=== PATIENT | female | born 1940 | race Caucasian/White ===

== ENCOUNTER 2020-10-30 13:26 | Outpatient (CLI) | payer MEDICARE, SELFPAY ==
--- NOTE | ~2020-10-30 | US_ITS ---
EXAMINATION: US arterial duplex LE DATE: 10/30/2020 14:45 INDICATION: Peripheral vascular disease. TECHNIQUE: Multiple grayscale and Doppler ultrasound images of the arteries of the bilateral lower li mbs were obtained. COMPARISON: None FINDINGS: Triphasic waveforms at the right dorsalis pedis popliteal arteries and biphasic waveforms in the nicole ining arteries of the right lower limb including the right common femoral, profunda femoral, superfic ial femoral, peroneal and posterior tibial arteries, all with brisk systolic upstrokes without eviden t hemodynamically significant stenosis on grayscale imaging. Biphasic waveforms throughout the corres ponding arteries at the left lower limb also with brisk systolic upstrokes throughout and without amarilys dent hemodynamically significant stenosis on grayscale imaging. IMPRESSION: 1. No findings to suggest hemodynamically significant stenosis in the arteries of either lower limb. Reviewed, dictated and finalized at location A.
== END 2020-10-30 13:27 | disposition home or self-care (01) ==
PROVIDERS: PCP Internal Medicine; Visit Provider Internal Medicine
DX: I73.9 Peripheral vascular disease, unspecified (principal)
CPT/HCPCS: 93925

== ENCOUNTER 2022-06-23 08:28 | Outpatient (CLI) | payer MEDICARE, SELFPAY ==
--- NOTE | ~2022-06-23 | CT_ITS ---
EXAMINATION: CT diagnostic chest wo con DATE: 06/23/2022 08:55 INDICATION: Dyspnea on exertion TECHNIQUE: Computed tomography (CT) of the chest was performed without intravenous contrast. The dose -length product (DLP) was 150.60 mGy-cm. Automated exposure control and iterative reconstruction tech nique were employed. COMPARISON: None FINDINGS: There is scarring of the lung apices. There is a 1.5 cm groundglass nodule of the right upp er lobe on image 40. No pleural effusion or pneumothorax. There is calcified atherosclerosis of the a rodrcik and coronary arteries. No pathologically enlarged thoracic lymph nodes are identified. The heart size is normal. There is a small sliding hiatal hernia. Stones are present in the gallbladder. There is mild thoracic spondylosis. IMPRESSION: 1. 1.5 cm subsolid nodule of the right upper lobe which may be infectious or inflammatory. Follow-up low-dose CT in three months is recommended. Reviewed, dictated and finalized at location L. IMPRESSION: 1. 1.5 cm subsolid nodule of the right upper lobe which may be infectious or in flammatory. Follow-up low-dose CT in three months is recommended.
== END 2022-06-23 08:29 | disposition home or self-care (01) ==
PROVIDERS: PCP Internal Medicine; Visit Provider Nurse Practitioner Adult Health
DX: R06.09 Other forms of dyspnea (principal); R91.1 Solitary pulmonary nodule
CPT/HCPCS: 71250

== ENCOUNTER 2022-07-05 12:37 | Outpatient (CLI) | payer MEDICARE, SELFPAY ==
--- NOTE | 2022-07-06 13:42 | WPDPFTINT ---
PFT Procedure Performed PFT Procedure Performed Plethysmography (Lung Vol) Diffusing Cap (DLCO) Flow Vol Loop Spirometry w/o Bronchodil PFT Interpretation Lung volumes were measured with the body plethysmography method. The elevated FRC could be due to air trapping. Spirometry showed normal forced vital capacity and FEV1 but diminished mid expiratory flow rates at 51%predicted, which in conjunction with a borderline normal FEV 1 to FVC ratio of 64% could be due to small airway dysfunction. No post bronchodilator study was carried out. Lung diffusion capacity is mildly reduced at 66% predicted. The flow volume loop is consistent with small airway dysfunction. Impression: Probable small airway disease. Mild reduction in lung diffusion capacity.
== END 2022-07-05 12:38 | disposition home or self-care (01) ==
PROVIDERS: PCP Internal Medicine; Visit Provider Nurse Practitioner Adult Health
DX: R06.09 Other forms of dyspnea (principal); R53.83 Other fatigue; R94.2 Abnormal results of pulmonary function studies
CPT/HCPCS: 94375; 94726; 94729

== ENCOUNTER 2023-05-23 09:26 | Outpatient (CLI) | payer MEDICARE, SELFPAY ==
--- NOTE | ~2023-05-23 | CT_ITS ---
EXAMINATION: CT diagnostic chest wo con DATE: 05/23/2023 10:03 INDICATION: Lung nodule, tobacco use TECHNIQUE: Computed tomography (CT) of the chest was performed without intravenous contrast. The dose -length product (DLP) was 65.06 mGy-cm. Automated exposure control and iterative reconstruction techn ique were employed. COMPARISON: 06/23/2022 FINDINGS: There is scarring of the lung apices. A 1.2 cm subsolid nodule of the right upper lobe is s table to slightly decreased in size. No solid component is identified. The lungs are free of acute op acities. No pleural effusion or pneumothorax. There is a 7 mm nodule of the left lower lobe on image 62. There are is a 9 mm subsolid nodule of the right lower lobe on image 65. No pathologically enlarg ed thoracic lymph nodes are identified. The heart size is normal. There is calcified coronary artery atherosclerosis. Cholelithiasis is noted. There is mild thoracic spondylosis. There are partially maria g ged changes of anterior fusion in the lower cervical spine. IMPRESSION: 1. Indeterminate 7 mm nodule of the left lower lobe. CT-guided biopsy is recommended. 2. Continued follow-up is recommended for the subsolid nodules of the right lung. Reviewed, dictated and finalized at location L. UTERIZED TABLE CUTTER IMPRESSION: 1. Indeterminate 7 mm nodule of the left lower lobe. CT-guided biopsy is recomm ended. 2. Continued follow-up is recommended for the subsolid nodules of the right luisa g.
== END 2023-05-23 09:27 | disposition home or self-care (01) ==
PROVIDERS: PCP Internal Medicine; Visit Provider Internal Medicine Cardiovascular Disease
DX: R91.1 Solitary pulmonary nodule (principal)
CPT/HCPCS: 71250

== ENCOUNTER 2023-11-22 09:33 | Emergency (ER) | payer MEDICARE, SELFPAY ==
--- NOTE | ~2023-11-22 | CT_ITS ---
EXAMINATION: CT LE RT wo con DATE: 11/22/2023 10:52 INDICATION: Spontaneous bleed with right lower limb pain and swelling TECHNIQUE: High resolution computed tomography (CT) of the right lower limb was performed without int ravenous contrast. Additional sagittal and coronal reconstructions were performed. Automated exposure control and iterative reconstruction technique were employed. The dose-length product was 2107.27 mG y-cm. COMPARISON: None FINDINGS: Surgical clips posterior to the cecum likely related to prior appendectomy. Mild diverticulosis along the sigmoid colon without adjacent from trace stranding to suggest diverticulitis. Bladder is normal . The uterus is not identified and has likely been surgically resected. Partially visualized moder ate-sized fat-containing left inguinal hernia. No free fluid in the pelvis. No pathologically enlarge d right pelvic or inguinal lymphadenopathy. Bone alignment is normal. No fracture. Moderate osteoarthritis at the right hip with posterior predom inant nonuniform joint space narrowing and subarticular cystlike changes at the posterior superior as pect of the femoral head and along the superolateral rim of the right acetabulum. No hip joint effusi on. Additional subarticular cystlike changes at the lateral patellar facet consistent with overlying high-grade chondromalacia. Small right knee joint effusion at the suprapatellar pouch. The medial lat eral compartments of the knee appear normal however joint space narrowing can be underestimated on no nweightbearing imaging. Minimal to mild polyarticular osteoarthritis at a few of the joints in the bi lateral mid and forefeet. Asymmetric soft tissue swelling with subcutaneous edema about the right ank le and over the dorsum of the right foot foot which is not seen at the contralateral left foot and an kle. Musculature in the right lower limb appears unremarkable. Atherosclerotic calcifications scatter ed in the arteries of the pelvis. Minimal scattered atherosclerotic calcification at the right common femoral, proximal femoral, popliteal and anterior and posterior tibial arteries. IMPRESSION: 1. Polyarticular osteoarthritis, moderate at the right hip and mild at the right knee and a few joint s in the right mid and forefoot. No acute osseous adenopathy. 2. Small right knee joint effusion. 3. Ossific asymmetric soft tissue swelling with subcutaneous edema at the right foot and ankle which is of indeterminate etiology. 4. Incompletely visualized moderate-sized fat-containing left inguinal hernia. Reviewed, dictated and finalized at location A. IMPRESSION: 1. 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 No acute osseous adenopa thy. 2. Small right knee joint effusion. 3. Ossific asymmetric soft tissue swelling with subcutaneous edema at the right foot and ankle which is of indeterminate etiology. 4. Incompletely visualized moderate-sized fat-containing left inguinal hernia.
--- NOTE | ~2023-11-22 | US_ITS ---
Duplex Sonography of the right extremity: Indication: Pain and swelling Findings: Sagittal and transverse B-mode images as well as color-flow imaging were performed on the r ight femoral and popliteal veins. B-mode examination was done without and with compression in the tr ansverse plane. There is good visualization of the common femoral, proximal profunda femoral, superf icial femoral, greater saphenous, and popliteal veins. Normal flow was seen on color-flow imaging. N ormal compressibility was demonstrated. Visualized calf veins are also patent. Impression: No evidence of deep vein thrombosis involving the right lower extremity. Reviewed, dictated and finalized at location M. Impression: No evidence of deep vein thrombosis involving the right lower extremity.
[2023-11-22 09:39] VITALS: BP 153/69; PULSE 86; RESP 16; TEMP 36.6; O2SAT 99
[2023-11-22 10:00] VITALS: BP 128/57; PULSE 72; RESP 18; TEMP 36.6; O2SAT 97
--- NOTE | 2023-11-22 10:07 | ED.EXTPRO ---
HPI - Extremity Problem General Chief complaint: Extremity Problem,Nontraumatic Stated complaint: right leg pain, swelling Time Seen by Provider: 11/22/23 09:36 History of Present Illness HPI Narrative: 83-year-old female with a history of hyperlipidemia, CAD, atrial fibrillation on warfarin, COPD, hypertension presents to the emergency department for right lower extremity ecchymosis, pain and swelling for 1 week. Patient denies injury or trauma to this leg. She does state that she had a mechanical fall this morning and she landed on her right hip. She denies hitting her head or other injuries. She states she has been taking her warfarin as directed normally gets her INR checked every month. She states she had blood work checked by her PCP yesterday but is unsure of the results. She was contacted by her PCPs office and was advised to come to the ED for further evaluation today. She is endorsing numbness and tingling to the right leg as well as pain throughout. Related Data Home Medications Medication Instructions Recorded Confirmed diphenhydramine HCl 25 mg tablet 25 mg PO ONCE PRN 03/29/19 11/21/23 (Allergy Relief (diphenhydramine)) metoprolol tartrate 50 mg tablet 50 mg PO Q12H 03/29/19 11/21/23 multivitamin (Multiple Vitamins 1 tablet PO DAILY 03/29/19 11/21/23 tablet) nitroglycerin 0.4 mg sublingual 0.4 mg sublingual Q5M PRN 03/29/19 11/21/23 tablet simvastatin 20 mg tablet 20 mg PO DAILY 03/29/19 11/21/23 warfarin 3 mg tablet 3 mg PO DAILY 03/29/19 11/21/23 aspirin 81 mg tablet,delayed 81 mg PO DAILY 04/01/19 11/21/23 release (Adult Low Dose Aspirin) cholecalciferol (vitamin D3) 50 2,000 unit PO DAILY 04/01/19 11/21/23 mcg (2,000 unit) capsule vitamin E (dl, acetate) 180 mg 400 unit PO DAILY 04/01/19 11/21/23 (400 unit) capsule amlodipine 2.5 mg tablet 2.5 mg PO DAILY 10/07/19 11/21/23 calcium carbonate (Tums) 200 mg PO BID PRN 10/07/19 11/21/23 Allergies Allergy/AdvReac Type Severity Reaction Status Date / Time adhesive tape Allergy Severe BLISTERS Verified 11/21/23 11:24 cortisone Allergy Severe Swelling Verified 11/21/23 11:24 iodine Allergy Severe Swelling, Verified 11/21/23 11:24 rash povidone Allergy Severe Rash Verified 11/21/23 11:24 Sulfa (Sulfonamide Allergy Intermediate Rash Verified 11/21/23 11:24 Antibiotics) lisinopril Allergy Unknown RASH, Verified 11/21/23 11:24 SORES IN MOUTH STAINLESS STEEL Allergy Intermediate INFECTION Uncoded 11/21/23 11:24 FROM SURGICAL PIN Review of Systems Review of Systems: All systems reviewed & are unremarkable except as noted in HPI and below PMFSH Family History Family History Mother Patient's mother is Father Patient's father is Other Heart disease Social History Social History Smoking status: Former smoker Tobacco type: cigarettes Second hand tobacco smoke exposure: No Smoking end date: 03/20/12 Alcohol intake: current Alcohol use details: rarely Substance use: never Lack of Transportation: No Lack of Food: Never True Current Housing: I Have Housing Concerned About Future Housing: No Difficulty Paying Gas/Electric Bills: No Difficulty Paying for Meds: No Currently Unemployed: No Education: High School Diploma/GED Difficulty w/ Childcare or Family Care: No Exam Narrative: GENERAL: Well-appearing, well-nourished, and in no acute distress. HEAD: Normocephalic, atraumatic. EYES: PERRLA and EOMI. ENT: Nares clear, no rhinorrhea or epistaxis. Mucous membranes moist. NECK: Supple. No midline cervical spinous tenderness, step-offs or deformity BACK: no midline thoracolumbar spinous tenderness, step-offs or deformities CHEST: Clear to auscultation. No respiratory distress. HEART: Regular rate and rhythm.
[2023-11-22 11:17] LABS: Basophils Absolute Auto 0.1 K/mm3 (0.0-0.1); Basophils Percent Auto 0.8 % (0.2-1.2); Eosinophils Absolute Auto 0.2 K/mm3 (0-0.3); Eosinophils Percent Auto 2.7 % (0-4.4); Hematocrit 31.7 % (37.0-47.0); Hemoglobin 10.3 g/dL (12.0-15.0); Immature Granulocyte Absolute 0.03 K/mm3 (0.00-0.031); Immature Granulocyte Percent A 0.4 % (0-0.5); Lymphocytes Absolute Auto 1.78 K/mm3 (0.9-3.2); Lymphocytes Percent Auto 22.7 % (18.3-44.2); Mean Corpuscular HGB Conc 32.5 g/dl (32-36); Mean Corpuscular Hemoglobin 33.4 pg (26-34); Mean Corpuscular Volume 102.9 fl (80-100); Mean Platelet Volume 9.1 fl (7.4-10.4); Monocytes Percent Auto 12.6 % (2.6-8.5); Neutrophils Absolute Auto 4.8 K/mm3 (1.3-6.7); Neutrophils Percent Auto 60.8 % (45.5-73.1); Platelet Count Result 300 k/mm3 (150-375); Red Blood Count 3.08 M/mm3 (4.2-5.4); Red Cell Distribution Width 12.4 % (11.5-14.5); White Blood Count 7.8 K/mm3 (4.5-10.0)
[2023-11-22 11:28] LABS: INR 3.3
[2023-11-22 11:29] LABS: Partial Thromboplastin Time 79.4 Seconds (22.3-36.8)
[2023-11-22 11:33] LABS: Alanine Aminotransferase 23 U/L (6-35); Albumin Level 3.7 g/dL (3.5-5.1); Alkaline Phosphatase 64 U/L (38-126); Anion Gap 7 mmol/L (4-12); Aspartate Amino Transferase 24 U/L (14-36); Bilirubin,Total 0.4 mg/dL (0.2-1.3); Blood Urea Nitrogen 10 mg/dL (7-17); Calcium 8.8 mg/dL (8.4-10.2); Carbon Dioxide 31 mmol/L (22-30); Chloride 101 mmol/L (98-107); Estimated CRCL calculation 57 ml/min; Estimated Glomerular Filt Rate > 60; Glucose 117 mg/dL (65-110); Potassium 4.2 mmol/L (3.4-5.0); Sodium 139 mmol/L (137-145)
[2023-11-22 12:26] VITALS: PULSE 77; RESP 17; O2SAT 98
== END 2023-11-22 12:29 | disposition left against medical advice (07) ==
PROVIDERS: Emergency Provider Physician Assistant; PCP Internal Medicine
DX: R23.3 Spontaneous ecchymoses (principal); R60.9 Edema, unspecified; Z79.01 Long term (current) use of anticoagulants; Z79.82 Long term (current) use of aspirin; Z87.891 Personal history of nicotine dependence
CPT/HCPCS: 36415; 73700; 80053; 85025; 85610; 85730; 93971; 99284

== ENCOUNTER 2023-12-06 09:09 | Outpatient (CLI) | payer MEDICARE, SELFPAY ==
--- NOTE | ~2023-12-06 | MR_ITS ---
EXAMINATION: MR lower leg RT wo con DATE: 12/06/2023 09:56 INDICATION: Generalized right lower limb pain, swelling and bruising TECHNIQUE: Magnetic resonance imaging (MRI) of the right lower leg was performed without intravenous contrast. A marker was placed over the mass. Sequences included axial, sagittal and coronal T1-weigh braulio FSE and fluid sensitive FSE STIR. The contralateral left lower leg is included on the coronal maria g ges. COMPARISON: CT dated 11/22/2023 FINDINGS: Bone alignment is normal. Low signal intensity likely sclerotic bone island at the left talus. Otherw ise normal bone marrow signal throughout with no fracture, reactive edema or pathologic marrow replac ing process. There is soft tissue edema at the posterior medial aspect of the right knee which appear s to extend caudally from the region of a small Khan's cyst potentially related to represents extrav asation from the Khan's cyst. There is additional subcutaneous edema throughout the right lower leg most prominent along the medial margin of the distal tibia surrounding the distal right greater saphe nous vein. Axial images there is loss of the low signal intensity flow void within vein at this level which could be due to sluggish flow, thrombosis or thrombophlebitis. There appears to be likely slug sandra flow in the asymmetric mildly dilated veins in the muscles of the posterior compartment of the l ower leg with layering fluid hematocrit levels. On the axial images there appears to be extrinsic com pression of the right popliteal vein at the popliteal fossa bilaterally proximal gastrocnemius muscle . Evaluation is however limited by loss of signal at this level which is at the margin of the field o f imaging. Musculature of the bilateral lower legs appears normal and symmetric. No knee or ankle rusty nt effusions. IMPRESSION: 1. Mild edema at the medial aspect of the right popliteal fossa the vicinity of a small Khan's cyst which could represent cyst rupture with extravasation. 2. Asymmetric mild enlargement of the intramuscular veins in the posterior compartment of the right c angel relative to the left with layering fluid hematocrit level suggesting sluggish flow. There is sugg estion of extrinsic compression of the popliteal vein at the level of the knee joint line however kalen luation is limited by low signal at this location which is at the margin of the field of imaging. 3. Focal loss of the flow void within the distal left greater saphenous vein at the level of the ankl e with some surrounding subcutaneous edema which could be due to slow flow, thrombosis or thrombophle bitis. Reviewed, dictated and finalized at location B. IMPRESSION: 1. Mild edema at the medial aspect of the right popliteal fossa the vicinity of a small Khan's cyst which could represent cyst rupture with extravasation. 2. Asymmetric mild enlargement of the intramuscular veins in the posterior comp artment of the right calf relative to the left with layering fluid hematocrit l evel suggesting sluggish flow. There is suggestion of extrinsic compression of the popliteal vein at the level of the knee joint line however evaluation is li mited by low signal at this location which is at the margin of the field of maria g ging. 3. Focal loss of the flow void within the distal left greater saphenous vein at the level of the ankle with some surrounding subcutaneous edema which could be due to slow flow, thrombosis or thrombophlebitis.
== END 2023-12-06 09:10 | disposition home or self-care (01) ==
LOC: MICIMG 09:11
PROVIDERS: PCP Internal Medicine; Visit Provider Internal Medicine
DX: M79.89 Other specified soft tissue disorders (principal); Z79.01 Long term (current) use of anticoagulants
CPT/HCPCS: 73718